=== PATIENT | female | born 1995 | race African-American/Black ===

== ENCOUNTER 2019-02-17 22:12 | Emergency (ER) | payer MEDICAID ==
[~2019-02-17] VITALS: Ht 175.3 cm; Wt 66.7 kg
[2019-02-17 22:26] VITALS: Ht 175.3 cm; Wt 66.7 kg
[2019-02-17 23:12] LABS: BASOPHIL % 0.8 % (0-2); PLATELET COUNT 315 x10^3mcL (130-400)
[2019-02-17 23:14] LABS: RED CELL DISTRIBUTION WIDTH 19.2 % (11.5-14.5)
[2019-02-17 23:32] LABS: CALCIUM 9.1 mg/dL (8.5-10.1); CARBON DIOXIDE 23.2 mmol/L (21-32); CHLORIDE SERUM 105 mmol/L (98-107); CREATININE SERUM 0.7 mg/dL (0.6-1.0); GFR1 > 60 mL/min; GLUCOSE SERUM 87 mg/dL (74-106); POTASSIUM SERUM 3.6 mmol/L (3.5-5.1); SODIUM SERUM 139 mmol/L (136-145)
[2019-02-17 23:42] LABS: ALBUMIN 4.1 g/dL (3.4-5.0); ALKALINE PHOSPHATASE 64 U/L (46-116); ALT/SGPT 11 U/L (14-59); AST/SGOT 19 U/L (15-37); BILIRUBIN TOTAL 0.61 mg/dL (0.20-1.00); TOTAL PROTEIN, SERUM 7.9 g/dL (6.4-8.2)
[2019-02-18 01:35] LABS: UA SPECIFIC GRAVITY 1.025 (1.005-1.035); microscopic required? YES; urine erythrocyte NEGATIVE (NEGATIVE)
[2019-02-18 03:03] VITALS: BP 103/57
== END 2019-02-18 03:03 | disposition home or self-care (01) ==
LOC: ED 22:12
PROVIDERS: Emergency Medicine
DX: O26.891 Other specified pregnancy related conditions, first trimester (principal); F12.10 Cannabis abuse, uncomplicated; Z3A.01 Less than 8 weeks gestation of pregnancy
CPT/HCPCS: J3411; J7030; Q0092

== ENCOUNTER 2019-02-25 17:47 | Emergency (ER) | payer MEDICAID | END 2019-02-25 19:01 | disposition left against medical advice (07) | LOC: ED 17:47 | DX: Z53.21 Procedure and treatment not carried out due to patient leaving prior to being seen by health care provider (principal) ==

== ENCOUNTER 2019-03-01 09:33 | Emergency (ER) | payer MEDICAID ==
[~2019-03-01] VITALS: Ht 177.8 cm; Wt 65.5 kg
[2019-03-01 09:44] VITALS: BP 118/67; Ht 177.8 cm; Wt 65.5 kg
[2019-03-01 10:58] LABS: CALCIUM 9.2 mg/dL (8.5-10.1); CARBON DIOXIDE 24.7 mmol/L (21-32); CHLORIDE SERUM 105 mmol/L (98-107); CREATININE SERUM 0.7 mg/dL (0.6-1.0); GFR1 > 60 mL/min; GLUCOSE SERUM 79 mg/dL (74-106); POTASSIUM SERUM 3.8 mmol/L (3.5-5.1); SODIUM SERUM 139 mmol/L (136-145)
[2019-03-01 11:00] LABS: ALBUMIN 3.8 g/dL (3.4-5.0); ALKALINE PHOSPHATASE 60 U/L (46-116); ALT/SGPT 10 U/L (14-59); AST/SGOT 15 U/L (15-37); BILIRUBIN TOTAL 0.63 mg/dL (0.20-1.00); LIPASE 35 IU/L (73-393); TOTAL PROTEIN, SERUM 7.4 g/dL (6.4-8.2)
[2019-03-01 11:09] LABS: BASOPHIL % 0.6 % (0-2); PLATELET COUNT 277 x10^3mcL (130-400)
[2019-03-01 11:10] LABS: RED CELL DISTRIBUTION WIDTH 22.6 % (11.5-14.5)
[2019-03-01 11:11] LABS: rbc morphology (normal/abnorm) ABNORMAL (NORMAL)
== END 2019-03-01 11:50 | disposition home or self-care (01) ==
LOC: ED 09:33
PROVIDERS: Emergency Medicine
DX: O99.611 Diseases of the digestive system complicating pregnancy, first trimester (principal); K29.70 Gastritis, unspecified, without bleeding; Z3A.10 10 weeks gestation of pregnancy
CPT/HCPCS: 36415